=== PATIENT | male | born 1980 | race Caucasian/White ===

== ENCOUNTER 2016-08-07 20:23 | Emergency (ER) | payer OTHER ==
[~2016-08-07] VITALS: Ht 177.8 cm; Wt 99.8 kg
[2016-08-07] MEDS ORDERED: CEPHALEXIN500 M3 PO (21:35)
[2016-08-07] MEDS ORDERED: VYVANSE50 M1 PO (21:35)
[2016-08-07] MEDS ORDERED: LAMOTRIGINE150 M1 PO (21:35)
[2016-08-07] MEDS ORDERED: CELEBREX200 M1 PO (21:36)
--- NOTE | 2016-08-07 22:14 | ED GENERAL ADULT ---
History of Present Illness General Chief Complaint: General Adult Stated Complaint: PT IS NOT FEELING WELL Source: patient, family Exam Limitations: no limitations Vital Signs & Intake/Output Vital Signs & Intake/Output Vital Signs Date Time Temp Pulse Resp B/P B/P Pulse O2 O2 Flow FiO2 Mean Ox Delivery Rate 08/08 0013 97.2 87 18 121/86 97 Room Air 08/077 97.2 88 18 120/85 96 Room Air ED Intake and Output 08/08 0000 08/07 1200 Intake Total Output Total Balance Patient 220 lb Weight Allergies Coded Allergies: pineapple (ANAPHYLAXIS - FRESH PINEAPPLE 08/07/16) Uncoded Allergies: NIGHTSHADE (HIVES 08/07/16) Reconcile Medications Celecoxib (Celebrex) 200 MG CAPSULE 1 CAP PO PRN PAIN (Reported) Cephalexin 500 MG CAPSULE 1 CAP PO BID ANTIBIOTIC (Reported) Lamotrigine 150 MG TABLET 1 TAB PO DAILY ADHD (Reported) Lisdexamfetamine Dimesylate (Vyvanse) 50 MG CAPSULE 1 CAP PO QAM ADHD ( Reported) Triage Note: PT TO ER WITH HIS DAD, PT NOTED WITH MULTIPLE COMPLAINTS, STATE STHAT HE HAS NOT BEEN FEELING WELL FOR ABOUT 1 WEEK, WAS SEEN AT [facility] ER FOR RASH AND STARTED ON KEFLEX ON WEDNESDAY, STATES THAT HE HAS A SORE ON HIS PENIS THAT WAS REMOVED ONCE BEFORE THAT IS BACK AND PAINFUL, ALSO STATES THAT HE HAS BEEN GETTING DIZZY AND THIS AM HAD A SYNCOPLE EPISODE AND WAS TAKING TO [facility], STATES THAT THEY DIDN'T DO ANYTHING AND SENT HIM [facility]. 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 DENIES CP/SOB Triage Nurses Notes Reviewed? yes Onset: Abrupt Duration: better, gone now Timing: recent history Severity: moderate Severity Numbers: 5 HPI: Patient is a 35-year-old male with past medical history of ADHD and GERD who presents emergency room with multiple complaints and concerns where patient presents with father. Patient states that he is compliant with his ADHD medications however not his GERD where he states that he's been complaining of a persistent left lateral neck rash or he is being treated currently with Keflex which she states that 2 weeks ago he has been complaining of persistent diarrhea however this has resolved patient Patient states that he did not eat anything today where he was working out for the first time in over a year where he suddenly became dizzy and patient has syncopal episode patient was brought in by ambulance to [facility] ER where he received unremarkable workup in which patient does present with father who is an ENT doctor who is concerned of patient's symptoms. Patient currently is asymptomatic except for his persistent left lateral neck rash. Patient does admit to cocaine use 4 days ago and marijuana one month ago. Patient does smoke tobacco and does not drink alcohol. Patient denies any suicidal or homicidal ideation denies any visual or auditory hallucinations. Father does state that he was requesting blood work evaluation for patient's symptoms a urine tox screen (REBA LOPEZ) Past History Travel History Traveled to [facility] past 21 day No Medical History Any Pertinent Medical History? see below for history Neurological: NONE EENT: NONE Cardiovascular: NONE Respiratory: NONE Gastrointestinal: GERD Hepatic: NONE Renal: NONE Musculoskeletal: NONE Psychiatric: ADHD Endocrine: NONE Blood Disorders: NONE Cancer(s): NONE Surgical History Surgical History: non-contributory Psychosocial History What is your primary language Slovenian Tobacco Use: Current Daily Use Daily Tobacco Use Amount/Type: => 5 Cigarettes daily ETOH Use: denies use Illicit Drug Use: cocaine, marijuana Family History Hx Contributory? No (REBA LOPEZ) Review of Systems Review of Systems Constitutional: Reports: no symptoms. EENTM: Reports: no symptoms. Respiratory: Reports: no symptoms. Cardiovascular: Reports: see HPI. GI: Reports: no symptoms. Genitourinary: Reports: no symptoms. Musculoskeletal: Reports: no symptoms. Skin: Reports: see HPI. Neurological/Psychological: Reports: no symptoms. Hematologic/Endocrine: Reports: no symptoms. Immunologic/Allergic: Reports: no symptoms. All Other Systems: Reviewed and Negative (REBA LOPEZ) Physical Exam Physical Exam General Appearance: no apparent distress, alert, comfortable Comments: Well-developed well-nourished person in no acute distress HEENT: Normal EENT exam, extraocular motion intact, no nystagmus. Pupils equally round and reactive to light and accommodation. Nose is atraumatic. External auditory canal and Tympanic membranes clear. Pharynx normal. No swelling or edema. Neck: Supple, no lymphadenopathy, normal range of motion without pain or tenderness Back: Nontender, no CVA tenderness. Cardiovascular: Regular rate and rhythms no murmurs rubs or gallops, normal JVP Respiratory: Chest nontender. No respiratory distress.breath sounds clear to auscultation bilaterally Abdomen: Soft, nontender nondistended, no appreciable organomegaly. Normal bowel sounds. No ascites Extremity: No edema, no calf tenderness to palpation, normal and equal pulses. Neuro: Alert oriented x3, motor sensory normal, cranial nerves II through XII grossly intact. Psych: Mood and affect is normal, memory and judgment is normal. Core Measures ACS in differential dx? No CVA/TIA Diagnosis: No Severe Sepsis Present: No Septic Shock Present: No Diagram Head: 1) Noted mild erythematous raised rash (LACEY ROSS,REBA) Progress Differential Diagnoses I considered the following diagnoses in my evaluation of the patient: Contact dermatitis, urticaria, cocaine abuse, electrolyte abnormality, vasovagal syncope Plan of Care: Orders Procedure Date/time Status Add-on Test (ER Only) 08/07 2317 Active TROPONIN LEVEL 08/07 2224 Complete URINE DRUGS OF ABUSE 08/07 2208 Complete URINALYSIS 08/07 2208 Complete THYROID STIMULATING HORMONE 08/07 2208 Complete LYME TITRE 08/07 2208 Active FREE T4 08/07 2208 Complete ETHANOL 08/07 2208 Complete COMPREHENSIVE METABOLIC PANEL 08/07 2208 Complete CBC WITHOUT DIFFERENTIAL 08/07 2208 Complete EKG 08/07 2208 Active Laboratory Tests 08/07/162224: Anion Gap 11, Estimated GFR > 60, BUN/Creatinine Ratio 14.4, Glucose 95, Calcium 8.9, Total Bilirubin 0.6, AST 34, ALT 55, Alkaline Phosphatase 62, Troponin I < 0.01, Total Protein 6.9, Albumin 4.5, Globulin 2.4, Albumin/Globulin Ratio 1.9, TSH 1.220, Free T4 1.34, CBC w Diff NO MAN DIFF REQ, RBC 4.88, MCV 90.3, MCH 30.0, RDW 14.0, MPV 8.3, Gran % 60.5, Lymphocytes % 28.2, Monocytes % 9.5 H, Eosinophils % 1.4, Basophils % 0.4, Absolute Granulocytes 5.1, Absolute Lymphocytes 2.4, Absolute Monocytes 0.8 H, Absolute Eosinophils 0.1, Absolute Basophils 0, PUBS MCHC 33.3, Lyme Disease Antibody Pending, Serum Alcohol < 10.0 06/02/17 2213: Urine Opiates Screen < 100.00, Methadone Screen < 40, Barbiturate Screen 71, Ur Phencyclidine Scrn < 6.00, Amphetamines Screen < 100, U Benzodiazepines Scrn < 85, Urine Cocaine Screen > 1000 H, Urine Cannabis Screen < 5.00, Urine Color YEL, Urine Clarity CLEAR, Urine pH 6.0, Ur Specific Cisco 1.025, Urine Protein TRACE H, Urine Ketones NEG, Urine Nitrite NEG, Urine Bilirubin NEG, Urine Urobilinogen 0.2, Ur Leukocyte Esterase NEG, Ur Microscopic SEDIMENT EXAMINED, Urine RBC 1-3, Urine WBC 1-3 H, Urine Mucus MOD H, Urine Hemoglobin NEG, Urine Glucose NEG Patient on initial examination was in no apparent distress and was asymptomatic. EKG was unremarkable blood work was unremarkable. Patient does have significant levels of cocaine and which I discussed with patient and father about my concerns in which she refuses any detoxification inpatient evaluation and will receive outpatient referral. He was strongly advised to discontinue drug use and to follow-up with his primary care doctor. All labs and EKG were copied for follow-up and provided to patient. Upon discharge patient looks well no apparent distress and will comply with discharge instructions and had no questions (REBA LOPEZ) Initial ED EKG: normal intervals, normal p-waves, normal QRS complex, SINUS RHYTHM NOTED AT 71 BPM (REBA LOPEZ) Departure Departure Disposition: HOME OR SELF CARE Condition: Stable Clinical Impression Primary Impression: Cocaine abuse Secondary Impressions: Rash, Syncope Referrals: PATIENT HAS NO PRIMARY CARE DR (PCP/Family) Additional Instructions: As discussed follow-up with your primary care doctor on Wednesday. Please discontinue the use of cocaine. If symptoms worsen return to emergency room Departure Forms: Customer Survey General Discharge Information (REBA LOPEZ) PA/ADMINISTRATIVE COORDINATOR Co-Sign Statement Statement: ED Attending supervision documentation- [] I saw and evaluated the patient. I have also reviewed all the pertinent lab results and diagnostic results. I agree with the findings and the plan of care as documented in the PA's/ADMINISTRATIVE COORDINATOR's documentation. [x] I have reviewed the ED Record and agree with the PA's/ADMINISTRATIVE COORDINATOR's documentation. [] Additions or exceptions (if any) to the PAs/ADMINISTRATIVE COORDINATOR's note and plan are summarized below: [] (JANE WOODS,DANIKA Guardado) Critical Care Note Critical Care Note Critical Care Time: non-applicable (LACEY ROSS,REBA)
[2016-08-07 22:36] LABS: ABSOLUTE BASOPHIL COUNT 0 /CUMM (0.0-0.2); ABSOLUTE EOSINOPHIL COUNT 0.1 /CUMM (0.0-0.7); ABSOLUTE GRANULOCYTE CT 5.1 /CUMM (1.4-6.5); ABSOLUTE LYMPH COUNT 2.4 /CUMM (1.2-3.4); ABSOLUTE MONOCYTE COUNT 0.8 /CUMM (0.10-0.60); BASOPHIL % 0.4 % (0.0-2.0); EOSINOPHIL % 1.4 % (0-5); GRANULOCYTE % 60.5 % (42.2-75.2); HEMATOCRIT 44.1 % (42-52); MEAN CORPUSCULAR HGB CONC 33.3 G/DL (33.0-37.0); MEAN CORPUSCULAR VOLUME 90.3 FL (80.0-94.0); MEAN PLATELET VOLUME 8.3 FL (7.4-10.4); PLATELET COUNT 236 /CUMM (130-400); RED BLOOD CELL CT 4.88 /CUMM (4.70-6.10); WHITE BLOOD CELL COUNT 8.4 /CUMM (4.8-10.8)
[2016-08-08 00:13] VITALS: BP 121/86
== END 2016-08-08 00:13 ==
LOC: ERH 20:23
PROVIDERS: Physician Assistant
DX: R55 Syncope and collapse (principal); R21 Rash and other nonspecific skin eruption; F14.10 Cocaine abuse, uncomplicated
CPT/HCPCS: 86618; 80307; 81001; 93005; 93010; G0480